=== PATIENT | male | born 1960 | race Caucasian/White ===

== ENCOUNTER 2023-01-03 23:16 | Inpatient (IN) | payer OTHER, SELFPAY ==
[2023-01-03 23:35] VITALS: BP 115/63; PULSE 77; RESP 18; TEMP 36.6; O2SAT 92
[2023-01-04 00:05] VITALS: BMI 33.0
--- NOTE | 2023-01-04 01:39 | PC.ADMIT ---
Pt is a 62yoM admitted on CV from [facility] for Schizophrenia. He has been off medications for an unknown period of time, experiencing AH of god's voice and reportedly chronic delusions of being stalked by the mafia . Pt is focused on finding safe medical care and traveling to his hometown of [place], [place] to check on his childhood home. Pt is malodorous and unkempt, disorganized, guarded, paranoid, but overall pleasant and cooperative. He had been living in a retirement since Jul 2022 but no longer feels safe and does not wish to return there. He has recurrent BLE cellulitis/BLE edema, previously on furosemide but not currently taking. Utox negative, pt denies etoh, nicotine, and illicit substances. He denies current SI/HI/AVH and did not appear to be responding to internal stimuli. He signed a 3-day notice upon arrival to the unit.
--- NOTE | 2023-01-04 07:36 | PHA.MEDREC ---
Pharmacy Consult ? Medication Reconciliation Pharmacy has completed the medication reconciliation. Patient not currently taking home meds.
[2023-01-04 09:30] VITALS: BP 91/55; PULSE 89; TEMP 36.6; O2SAT 97
--- NOTE | 2023-01-04 09:55 | HO.PSYADMNOT ---
HPI Date of Service: 01/04/23 Chief Complaint: Schizophrenia Sources of Information: patient interviewed, chart reviewed and crisis/core team assessment reviewed HPI Subjective Notes: Keen Warning (given and shows understanding), Conditional Voluntary and 3 Day Narrative: Mr. Mohr is a 62 year-old male with hx of schizoprenia who self presented to [facility] reporting that he has been stalked at work and people are trying to poison his medications. He reported that he left long term [facility] because he did not feel safe and was looking to be admitted to [place] in [place]. In the ED utox is negative. Pt also presented with bilateral lower edema and erythema s/s to venous insufficiency. On the unit, pt met with this creative writer and MECCA Peace. Pt presents as cooperative, slightly guarded and asks if his information is confidential. It was explained to pt that as long as information is not suggestive of harm to self or others or sign that he is gravely disable and can't care for himself, it will not be disclosed to other sources (e.i court). Pt's speech is circumstantial, at times difficult to redirect. Pt reports since 1971 his uncle was murdered by the dianboom around [facility] and he recently realized that he inherence millions worth of property. He reports he does not have deems of these properties but working on it. However, because of what ever happened to his uncle, pt believes that people are after him poisoning his food, his medication. He reports there have been multiple attempts to end his life. He reports he suspect not only the [employer] but yarsanism organizations are after him, such as Jehovah witnesses. 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 He seen talking to someone who was not there but denies when asked about hearing voices that others can't hear. He reports he was staying at long term [facility] but does not feel safe there. He also asks if here in the hospital we can give him sealed food as he would feel safety. Pt is non threatening, not agitated. Past Psychiatric History: Inpt: multiple in the past at [facility] OP: none Past med trials: unclear, pt unable to provide this information Medical Evaluation Reviewed: Yes [facility] Medical History (Updated 01/05/23 @ 08:27 by Melanie Mayen) Chronic venous stasis dermatitis Inguinal hernia Schizoaffective disorder Venous insufficiency Ventral hernia Family History: unknown Social History: pt is homeless. completed HS. No further details about family. Substance History: none Trauma History: none Diagnostics Vital Signs (24Hr): Vital Signs - 24 hr 01/03/23 23:35 Temperature 97.9 F Pulse Rate 77 Respiratory Rate 18 Blood Pressure 115/63 Pulse Oximetry 92 Oxygen Delivery Method Room Air BMI result Body Mass Index 33.0 Labs 01/04/23 09:40 Meds/Allergies Meds Home Medications Medication Instructions Recorded Confirmed Type No Known Home Meds 01/04/23 01/04/23 History Allergies Allergies Allergy/AdvReac Type Severity Reaction Status Date / Time No Known Allergies Allergy Verified 01/03/23 23:21 Mental Status Exam Mental Status Exam Narrative: Appearance: MO, wearing hospital gown, in NAD Behavior: calm, guarded in terms of how much information he would give us. Speech: clear, regular rate, hyperverbal at times, spontaneous TP: cirmcustantial TC: persecutory delusions, looking for long term Mood: okay Affect: congruent, mostly constricted Si: none HI: none VH/AH: talking to someone who is not there Delusions: persecutory delusions Insight/judgment: poor x 2. Memory/cog: alert, oriented x3. not situation Assessment & Plan Assessment & Plan (1) Schizophrenia: Status: Acute Code(s): F20.9 - Schizophrenia, unspecified Plan Mr. Mohr is a 62 year-old male with hx of schizophrenia. Pt self presented to [facility] reporting that he is being poisoned and looking for long term. He was looking for admission at [place] as he is originally from [facility]. Pt presents with circumstantial, repetitive and disorganized speech. He asking basically for long term as he does not feel safe back at [facility]. We discussed risks, benefits and alternative treatment options. Pt declines any medications at this time other that lasix but BP is low. Pt does not present in any way as agitated or aggressive. PLAN 1. admit to , CV- he signed a 3 day. 15 minutes checks 2. Aftercare planning. Patient educated on: diagnosis and medication risk/benefits Reason for continued inpatient stay Substantial Risk for: inability to function Statement Statement: I have reviewed the history and physical and performed a pertinent examination on my patient. No changes have occurred unless specified. If the History and Physical was not performed prior to admission, the Hospitalist's service will be consulted for completing the admission physical. Time Spent With Patient Time: Total time managing care of this patient today ____ minutes.
[2023-01-04 09:57] LABS: Estimated Average Glucose 100 mg/dL; Hemoglobin A1c % 5.1 %
[2023-01-04 10:56] LABS: Alanine Aminotransferase 14 U/L (0-40); Albumin Level 3.6 g/dL (3.5-5.0); Alkaline Phosphatase 151 U/L (39-117); Anion Gap 11 (12-20); Aspartate Amino Transferase 16 U/L (5-37); Bilirubin Total 0.9 mg/dL (0.0-1.0); Blood Urea Nitrogen 18 mg/dL (9-16); Carbon Dioxide 31 mmol/L (22-29); Chloride 103 mmol/L (96-108); Cholesterol 146 mg/dL; Creatinine Clr Calc Pharmacy 104.7; Estimated Glomerular Filt Rate > 60; Glucose Fasting 86 mg/dL (60-99); HDL Cholesterol 43 mg/dL; LDL Cholesterol Calculated 91 mg/dl; Sodium 141 mmol/L (135-145); Total Protein 6.5 g/dL (6.5-8.0); Triglycerides 62 mg/dL
[2023-01-04 11:27] LABS: Folate 9.2 ng/mL (> or = 4.0); Thyroid Stimulating Hormone 2.56 uIU/mL (0.32-4.0); Vitamin B12 663 pg/mL (200-900)
--- NOTE | 2023-01-04 17:13 | P.CONHOSP_ITS ---
History of Present Illness Data of Consult Service Date: 01/04/23 Requesting physician: Melanie Mayen Primary Care Provider: Unknown Physician HPI Reason for consult: medical H&P 62-year-old male with history of schizophrenia, bilateral venous stasis dermatitis, venous is insufficiency for which he reports he takes furosemide admitted to Psychiatry with consult placed to hospitalist service for medical H&P. The patient reports he has 2 large hernias that are occasionally bothersome. Denies any changes in bowel habits. No abdominal pain, nausea, vomiting. He denies any alcohol, illicit drug, or cigarette use. He is a former smoker. He has no complaints at this time. Review of Systems Review of Systems: General: No fevers, malaise, unintentional weight loss HEENT: No blurred vision, diplopia. No sore throat, nasal congestion, rhinorrhea, sinus pain, ear pain Cardiovascular: No chest pain, palpitations, or leg edema Respiratory: No shortness of breath, wheezing, cough GI: +hernia. No abdominal pain, nausea, vomiting, diarrhea, constipation, melena, hematochezia : No dysuria, hematuria, increased urinary frequency, decreased urinary output MSK: No myalgia, back pain Neuro: No headaches, weakness, paresthesias Skin: No rashes or lesions [facility] Medical History (Updated 01/04/23 @ 17:28 by MELIDA Franks) Chronic venous stasis dermatitis Inguinal hernia Schizoaffective disorder Venous insufficiency Ventral hernia Social History Household Members: None Housing: Homeless Do you presently have visiting nurse or other home services: No Patient Tobacco Use Status: Former Tobacco user Use of substances other than those prescribed or required for medical reasons: No Currently Displaying Signs/Symptoms of Drug Intoxication Withdrawal: No Have you been hit, kicked, punched, or otherwise hurt by someone within the past year? If so, by whom?: No Do you feel safe in your current relationship?: No Current Relationship Is there a partner from a previous relationship who is making you feel unsafe no w?: No Are you made to feel afraid or neglected: No Advance Directives: No Advance Directives Information Provided: Yes Do you have thoughts of harming others: None Do you have a plan to hurt others: No Plan Recently lost weight without trying: Yes How much weight loss: 2-13 pounds Eating poorly because of decreased appetite: No Nutrition screen score: 3 Nutrition Risks: No Nutritional Risk Poor oral hygiene: Yes service: No Sexual orientation: Don't Know Meds Allergies Allergy/AdvReac Type Severity Reaction Status Date / Time No Known Allergies Allergy Verified 01/03/23 23:21 Active Medications: Current Medications Acetaminophen (Acetaminophen 325 Mg Tablet) 650 mg PO Q6H PRN PRN Reason: Headache/Pain Mild Scale (1-3) Al Hydroxide/Mg Hydroxide (Magnesium Hydrox/Alum Hydrox 30 Ml Oral.Susp) 30 ml PO Q6H PRN PRN Reason: Heartburn/Nausea Hydroxyzine HCl (Hydroxyzine Hcl 25 Mg Tablet) 25 mg PO Q6H PRN PRN Reason: Anxiety Magnesium Hydroxide (Milk Of Magnesia 30 Ml Oral.Susp) 30 ml PO DAILY PRN PRN Reason: Constipation Trazodone HCl (Trazodone Hcl 50 Mg Tablet) 50 mg PO BEDTIME PRN PRN Reason: Insomnia Home Medications Medication Instructions Recorded Confirmed Last Taken Type No Known Home Meds 01/04/23 01/04/23 Unknown History Physical Exam Vital Signs and Narrative: Vital Signs: Last Vital Signs Temp 97.9 F 01/04/23 09:30 Pulse 89 01/04/23 09:30 Resp 18 01/03/23 23:35 BP 91/55 L 01/04/23 09:30 Pulse Ox 97 01/04/23 09:30 O2 Del Method 01/04/23 09:30 BMI result Body Mass Index 33.0 Constitutional - Awake and Alert, No apparent distress Eyes - PERRLA, EOMI Cardiovascular - S1S2, RRR, No edema Respiratory - Normal lung expansion, Normal respiratory effort, No respiratory distress, CTA bilaterally Gastrointestinal - NT / ND; +BS; No rebound or guarding. 4 cm left-sided ventral hernia without overlying erythema or gangrene - large, minimally reducible inguinal hernia descending into the left testicle without ttp. RN Mt surgery pusher operator for the sensory exam Extremities - no calf tenderness bilaterally, no swelling. Chronic venous stasis changes lower extremities bilaterally Musculoskeletal - Normal inspection, normal ROM Skin - Warm/Dry Neurological - Alert & oriented x3, CN II-XII in tact, 5/5 strength BUE and BLE Psychological - Appropriate affect Results Labs 01/04/23 09:40 Labs: Laboratory Results - last 24 hr 01/04/23 01/04/23 09:40 09:40 Anion Gap 11 L Estim Creat Clear Calc 104.7 Estimated GFR > 60 Fasting Glucose 86 Estimat Average Glucose 100 Hemoglobin A1c % 5.1 Calcium 9.0 Total Bilirubin 0.9 AST 16 ALT 14 Alkaline Phosphatase 151 H Total Protein 6.5 Albumin 3.6 Triglycerides 62 Cholesterol 146 LDL Cholesterol, Calc 91 HDL Cholesterol 43 Vitamin B12 663 Folate 9.2 TSH 2.56 Assessment and Plan (1) Routine medical exam: Status: Acute Plan 62-year-old male with history of schizophrenia, bilateral venous stasis dermatitis, venous is insufficiency for which he reports he takes furosemide admitted to Psychiatry with consult placed to hospitalist service for medical H&P. # schizoaffective disorder/mood disorder -plan per Psychiatry # ventral hernia and large inguinal hernia -recommend surgical consult- will likely require continued outpt follow up and possible surgical repair #Bilateral venous stasis dermatitis -Pt reports he takes furosemide at home. BP soft. If BP improves, consider resuming at 20mg -Reviewed renal function and electrolyte levels normal -Elevate legs and compression stockings prn -Monitor BMP in 1 week #Elevated BNP -BNP 380 at [facility]. Baseline unclear. -Lungs clear. Low suspicion for acute CHF exacerbation at this time, pt asymptomatic -Resume lasix once BP allows -Will need outpt follow up with PCP and outpt echo for further investigation Thank you for allowing me to participate in this consult. Signing off at this time. Please do not hesitate to call for further questions. Time Spent With Patient Time: Total time managing care of this patient today ____ minutes.
[2023-01-05 08:00] VITALS: PULSE 78; RESP 18; TEMP 36.6; O2SAT 96
--- NOTE | 2023-01-05 11:44 | P.PNPSI_ITS ---
Subjective Subjective Date of Service: 01/05/23 Reason For Visit: Schizophrenia Subjective Notes: Conditional Voluntary Interim History: Pt continues to report paranoid delusions of mafia trying to kill him. He can't return to [facility] due to his medical needs. Pt reports he has racing thoughts and would like something for anxiety. When asked if hearing voices, I am not supposed to talk about it. He seemed open to trying perphenazine. No SI/HI. No signs of aggression. Review of Systems Review of Systems General: No fevers, malaise, unintentional weight loss HEENT: No blurred vision, diplopia. No sore throat, nasal congestion, rhinorrhea, sinus pain, ear pain Cardiovascular: No chest pain, palpitations, or leg edema Respiratory: No shortness of breath, wheezing, cough GI: +hernia. No abdominal pain, nausea, vomiting, diarrhea, constipation, melena, hematochezia : No dysuria, hematuria, increased urinary frequency, decreased urinary output MSK: No myalgia, back pain Neuro: No headaches, weakness, paresthesias Skin: No rashes or lesions Mental Status Exam Mental Status Exam Narrative: Appearance: MO, wearing hospital gown, in NAD Behavior: calm, guarded in terms of how much information he would give us. Speech: clear, regular rate, hyperverbal at times, spontaneous TP: cirmcustantial TC: persecutory delusions, looking for group home Mood: okay Affect: congruent, mostly constricted Si: none HI: none VH/AH: talking to someone who is not there Delusions: persecutory delusions Insight/judgment: poor x 2. Memory/cog: alert, oriented x3. not situation Diagnostics Vital Signs (24Hr): Vital Signs - 24 hr 01/05/23 20:30 Pulse Rate 89 Respiratory Rate 16 Blood Pressure 104/57 L Pulse Oximetry 94 Oxygen Delivery Method Room Air BMI result Body Mass Index 33.0 Labs 01/04/23 09:40 Labs: Laboratory Results - last 48 hr 01/04/23 01/04/23 09:40 09:40 Sodium 141 Potassium 4.0 Chloride 103 Carbon Dioxide 31 H Anion Gap 11 L BUN 18 H Creatinine 0.81 Estim Creat Clear Calc 104.7 Estimated GFR > 60 Fasting Glucose 86 Estimat Average Glucose 100 Hemoglobin A1c % 5.1 Calcium 9.0 Total Bilirubin 0.9 AST 16 ALT 14 Alkaline Phosphatase 151 H Total Protein 6.5 Albumin 3.6 Triglycerides 62 Cholesterol 146 LDL Cholesterol, Calc 91 HDL Cholesterol 43 Vitamin B12 663 Folate 9.2 TSH 2.56 Medications Medications Current Medications Acetaminophen (Acetaminophen 325 Mg Tablet) 650 mg PO Q6H PRN PRN Reason: Headache/Pain Mild Scale (1-3) Al Hydroxide/Mg Hydroxide (Magnesium Hydrox/Alum Hydrox 30 Ml Oral.Susp) 30 ml PO Q6H PRN PRN Reason: Heartburn/Nausea Hydroxyzine HCl (Hydroxyzine Hcl 25 Mg Tablet) 25 mg PO Q6H PRN PRN Reason: Anxiety Magnesium Hydroxide (Milk Of Magnesia 30 Ml Oral.Susp) 30 ml PO DAILY PRN PRN Reason: Constipation Trazodone HCl (Trazodone Hcl 50 Mg Tablet) 50 mg PO BEDTIME PRN PRN Reason: Insomnia Allergies Allergies Allergy/AdvReac Type Severity Reaction Status Date / Time No Known Allergies Allergy Verified 01/03/23 23:21 Assessment & Plan Assessment & Plan (1) Schizophrenia: Status: Acute Code(s): F20.9 - Schizophrenia, unspecified Plan Mr. Mohr is a 62 year-old male with hx of schizophrenia. Pt self presented to [facility] reporting that he is being poisoned and looking for group home. He was looking for admission at [facility] as he is originally from [facility]. Pt presents with circumstantial, repetitive and disorganized speech. He asking basically for group home as he does not feel safe back at [facility]. We discussed risks, benefits and alternative treatment options. Pt declines any medications at this time other that lasix but BP is low. Pt does not present in any way as agitated or aggressive. PLAN 1. admit to [facility], CV- he signed a 3 day. 15 minutes checks 2. Aftercare planning. 01/05 start perphenazine 2mg po BID. Reason for contiued inpatient stay Substantial Risk for: inability to function Time Spent With Patient Time: Total time managing care of this patient today ____ minutes.
--- NOTE | 2023-01-05 14:13 | MHC.CLN ---
NUTRITION CONSULT FOR UNINTENTIONAL WEIGHT LOSS. UBW ABOUT 240#. CURRENT QEVEPP=026#. VISITED WITH PATIENT. DOES NOT THINK THAT HE HAS LOST 20#. REPORTS THAT EATS OUT AT [facility]. REPORTS THAT CURRENTLY EATING WELL. AWARE THAT HE CAN SELECT OWN MENU ITEMS AND CAN HAVE SNACKS ON UNIT. NO ADDITIONAL NUTRITION INTERVENTIONS AT THIS TIME.
[2023-01-05 20:30] VITALS: BP 104/57; PULSE 89; RESP 16; O2SAT 94
[2023-01-06 07:00] VITALS: BMI 34.0
[2023-01-06] MEDS: Perphenazine 4 MG TABLET PO ×2 (10:41→20:58)
--- NOTE | 2023-01-06 11:32 | P.PNPSI_ITS ---
Subjective Subjective Date of Service: 01/06/23 Reason For Visit: Schizophrenia Subjective Notes: Conditional Voluntary Interim History: Pt reports he slept through the night. He shows appropriate concern about his legs and need for treatment. Pt explained that given that his BP has been low, lasix can't be restarted at this point. Pt denies SI/HI. He reports he is open to trying medication for his mental health referring to racing thoughts, which seem to be more auditory hallucination as pt observed having conversation with someone who is not there. Pt continues to report paranoid delusions of being persecuted by the mafia and people trying to hurt him. Medication Compliance: Yes Side effects from medications: No Review of Systems Review of Systems General: No fevers, malaise, unintentional weight loss HEENT: No blurred vision, diplopia. No sore throat, nasal congestion, rhinorrhea, sinus pain, ear pain Cardiovascular: No chest pain, palpitations, or leg edema Respiratory: No shortness of breath, wheezing, cough GI: +hernia. No abdominal pain, nausea, vomiting, diarrhea, constipation, melena, hematochezia : No dysuria, hematuria, increased urinary frequency, decreased urinary output MSK: No myalgia, back pain Neuro: No headaches, weakness, paresthesias Skin: No rashes or lesions Mental Status Exam Mental Status Exam Narrative: Appearance: MO, wearing hospital gown, in NAD Behavior: calm, guarded in terms of how much information he would give us. Speech: clear, regular rate, hyperverbal at times, spontaneous TP: cirmcustantial TC: persecutory delusions, looking for fpc Mood: okay Affect: congruent, mostly constricted Si: none HI: none VH/AH: talking to someone who is not there Delusions: persecutory delusions Insight/judgment: poor x 2. Memory/cog: alert, oriented x3. not situation Diagnostics Vital Signs (24Hr): Vital Signs - 24 hr 01/06/23 11:52 01/06/23 20:30 Temperature 97.8 F 97.3 F Pulse Rate 86 86 Respiratory Rate 18 16 Blood Pressure 120/60 119/70 Pulse Oximetry 97 96 Oxygen Delivery Method Room Air Room Air BMI result Body Mass Index 34.0 Labs 01/04/23 09:40 Medications Medications Current Medications Acetaminophen (Acetaminophen 325 Mg Tablet) 650 mg PO Q6H PRN PRN Reason: Headache/Pain Mild Scale (1-3) Al Hydroxide/Mg Hydroxide (Magnesium Hydrox/Alum Hydrox 30 Ml Oral.Susp) 30 ml PO Q6H PRN PRN Reason: Heartburn/Nausea Hydroxyzine HCl (Hydroxyzine Hcl 25 Mg Tablet) 25 mg PO Q6H PRN PRN Reason: Anxiety Magnesium Hydroxide (Milk Of Magnesia 30 Ml Oral.Susp) 30 ml PO DAILY PRN PRN Reason: Constipation Perphenazine (Perphenazine 4 Mg Tablet) 4 mg PO BID LISY Last Admin: 01/06/23 20:58 Dose: 4 mg Trazodone HCl (Trazodone Hcl 50 Mg Tablet) 50 mg PO BEDTIME PRN PRN Reason: Insomnia Allergies Allergies Allergy/AdvReac Type Severity Reaction Status Date / Time No Known Allergies Allergy Verified 01/03/23 23:21 Assessment & Plan Assessment & Plan (1) Schizophrenia: Status: Acute Code(s): F20.9 - Schizophrenia, unspecified Plan Mr. Mohr is a 62 year-old male with hx of schizophrenia. Pt self presented to [facility] reporting that he is being poisoned and looking for fpc. He was looking for admission at [place] as he is originally from [facility]. Pt presents with circumstantial, repetitive and disorganized speech. He asking basically for fpc as he does not feel safe back at [facility]. We discussed risks, benefits and alternative treatment options. Pt declines any medications at this time other that lasix but BP is low. Pt does not present in any way as agitated or aggressive. PLAN 1. admit to , - he signed a 3 day. 15 minutes checks 2. Aftercare planning. 01/05 start perphenazine 2mg po BID. 01/06 continue tx. pt asked about need for antibiotic for leg cellulitis- no signs of it per hospitalist. Reason for contiued inpatient stay Substantial Risk for: inability to function Time Spent With Patient Time: Total time managing care of this patient today ____ minutes.
[2023-01-06 11:52] VITALS: BP 120/60; PULSE 86; RESP 18; TEMP 36.6; O2SAT 97
[2023-01-06 20:30] VITALS: BP 119/70; PULSE 86; RESP 16; TEMP 36.3; O2SAT 96
[2023-01-07 09:00] VITALS: BP 108/71; PULSE 89; RESP 18; TEMP 36.2; O2SAT 96
--- NOTE | 2023-01-07 09:57 | PC.NURSE ---
Patient declining medications this morning, stating he feels they are making him constipated. Offered x2, patient declined x2.
--- NOTE | 2023-01-07 12:03 | P.PNPSI_ITS ---
Subjective Subjective Date of Service: 01/07/23 Reason For Visit: Schizophrenia Subjective Notes: Conditional Voluntary Interim History: Pt continues to report paranoia people trying to kill him. Pt quickly becomes paranoid at hospital and states he has been searching for hospital where he can get safe care. He has appropriate concerns about his medical conditions including tx for chronic venous stasis dermatitis, CHF, and COPD. He denies SI/HI. Medication Compliance: Yes Side effects from medications: No Review of Systems Review of Systems General: No fevers, malaise, unintentional weight loss HEENT: No blurred vision, diplopia. No sore throat, nasal congestion, rhinorrhea, sinus pain, ear pain Cardiovascular: No chest pain, palpitations, or leg edema Respiratory: No shortness of breath, wheezing, cough GI: +hernia. No abdominal pain, nausea, vomiting, diarrhea, constipation, melena, hematochezia : No dysuria, hematuria, increased urinary frequency, decreased urinary output MSK: No myalgia, back pain Neuro: No headaches, weakness, paresthesias Skin: No rashes or lesions Mental Status Exam Mental Status Exam Narrative: Appearance: MO, wearing hospital gown, in NAD Behavior: calm, guarded in terms of how much information he would give us. Speech: clear, regular rate, hyperverbal at times, spontaneous TP: cirmcustantial TC: persecutory delusions, looking for fpc Mood: okay Affect: congruent, mostly constricted Si: none HI: none VH/AH: talking to someone who is not there Delusions: persecutory delusions Insight/judgment: poor x 2. Memory/cog: alert, oriented x3. not situation Diagnostics Vital Signs (24Hr): Vital Signs - 24 hr 01/06/23 20:30 01/07/23 09:00 01/07/23 15:34 Temperature 97.3 F 97.2 F 97.3 F Pulse Rate 86 89 88 Respiratory Rate 16 18 22 H Blood Pressure 119/70 108/71 137/63 Pulse Oximetry 96 96 97 Oxygen Delivery Method Room Air Room Air Room Air BMI result Body Mass Index 34.0 Labs 01/04/23 09:40 Medications Medications Current Medications Acetaminophen (Acetaminophen 325 Mg Tablet) 650 mg PO Q6H PRN PRN Reason: Headache/Pain Mild Scale (1-3) Al Hydroxide/Mg Hydroxide (Magnesium Hydrox/Alum Hydrox 30 Ml Oral.Susp) 30 ml PO Q6H PRN PRN Reason: Heartburn/Nausea Hydroxyzine HCl (Hydroxyzine Hcl 25 Mg Tablet) 25 mg PO Q6H PRN PRN Reason: Anxiety Magnesium Hydroxide (Milk Of Magnesia 30 Ml Oral.Susp) 30 ml PO DAILY PRN PRN Reason: Constipation Multi-Ingred Cream/Lotion/Oil/Oint (Mineral Oil/Petrolatum,White 106 Gm Tube) 1 appl TOPICAL TID [facility]; Protocol Last Admin: 01/07/23 15:30 Dose: 1 appl Perphenazine (Perphenazine 4 Mg Tablet) 4 mg PO BID [facility] Last Admin: 01/07/23 11:25 Dose: Not Given Trazodone HCl (Trazodone Hcl 50 Mg Tablet) 50 mg PO BEDTIME PRN PRN Reason: Insomnia Allergies Allergies Allergy/AdvReac Type Severity Reaction Status Date / Time No Known Allergies Allergy Verified 01/03/23 23:21 Assessment & Plan Assessment & Plan (1) Schizophrenia: Status: Acute Code(s): F20.9 - Schizophrenia, unspecified Plan Mr. Mohr is a 62 year-old male with hx of schizophrenia. Pt self presented to [facility] reporting that he is being poisoned and looking for fpc. He was looking for admission at [place] as he is originally from [facility]. Pt presents with circumstantial, repetitive and disorganized speech. He asking basically for fpc as he does not feel safe back at [facility]. We discussed risks, benefits and alternative treatment options. Pt declines any medications at this time other that lasix but BP is low. Pt does not present in any way as agitated or aggressive. PLAN 1. admit to M3, CV- he signed a 3 day. 15 minutes checks 2. Aftercare planning. 01/05 start perphenazine 2mg po BID. 01/06 continue tx. pt asked about need for antibiotic for leg cellulitis- no signs of it per hospitalist. 01/07 wants perphenazine at bedtime. BP better, may tolerate restarting lasix 20mg po daily at this time. monitor fluid retention, CHF s/s, repeat BNP. Reason for contiued inpatient stay Substantial Risk for: inability to function Time Spent With Patient Time: Total time managing care of this patient today ____ minutes.
[2023-01-07] MEDS: Mineral Oil/Petrolatum,White 106 GM Tube 1 APPL TOPICAL ×3 (12:09→20:21)
[2023-01-07 15:34] VITALS: BP 137/63; PULSE 88; RESP 22; TEMP 36.3; O2SAT 97
--- NOTE | 2023-01-07 15:35 | PC.NURSE ---
Patient w/ episode of coughing while with provider; vitals obtained at provider's request, coughing subsided, no longer coughing, denies SOB.
--- NOTE | 2023-01-07 18:43 | PC.NURSE ---
Late entry: [employer] texted re: obtaining compression stockings.
[2023-01-07] MEDS: Furosemide 20 MG TABLET PO (20:20)
[2023-01-07 20:26] VITALS: BP 157/60; PULSE 79; TEMP 36.7; O2SAT 93
[2023-01-08 06:00] VITALS: BP 116/68; PULSE 80; RESP 18; TEMP 36.8; O2SAT 95
[2023-01-08 08:24] LABS: Alanine Aminotransferase 15 U/L (0-40); Albumin Level 3.3 g/dL (3.5-5.0); Alkaline Phosphatase 167 U/L (39-117); Anion Gap 11 (12-20); Aspartate Amino Transferase 15 U/L (5-37); Bilirubin Total 0.5 mg/dL (0.0-1.0); Blood Urea Nitrogen 23 mg/dL (9-16); Calcium 8.7 mg/dL (8.4-10.2); Carbon Dioxide 30 mmol/L (22-29); Chloride 105 mmol/L (96-108); Creatinine Clr Calc Pharmacy 116.5; Estimated Glomerular Filt Rate > 60; Glucose Fasting 96 mg/dL (60-99); Potassium 4.6 mmol/L (3.3-5.1); Sodium 141 mmol/L (135-145); Total Protein 5.9 g/dL (6.5-8.0)
[2023-01-08] MEDS: Furosemide 20 MG TABLET PO (09:50)
[2023-01-08 11:15] LABS: B Type Natriuretic Peptide 39 pg/mL (<100)
--- NOTE | 2023-01-08 20:17 | P.PNPSI_ITS ---
Subjective Subjective Date of Service: 01/08/23 Reason For Visit: Schizophrenia Interim History: pt sleepimng in bed after lunch. rousanaren, declines interview. no questions, complaints, or requests. per staff, isolative, withdrawn, paranoid that tuyet are following him, that someone has taken all his property. refusing some meds, including trilafon. Mental Status Exam Mental Status Exam Narrative: Appearance: MO, wearing hospital gown, in NAD Behavior: calm, guarded in terms of how much information he would give us. Speech: clear, regular rate, hyperverbal at times, spontaneous TP: cirmcustantial TC: persecutory delusions, looking for care home Mood: okay Affect: congruent, mostly constricted Si: none HI: none VH/AH: talking to someone who is not there Delusions: persecutory delusions Insight/judgment: poor x 2. Memory/cog: alert, oriented x3. not situation Diagnostics Vital Signs (24Hr): Vital Signs - 24 hr 01/07/23 20:26 01/08/23 06:00 Temperature 98.0 F 98.2 F Pulse Rate 79 80 Respiratory Rate 18 Blood Pressure 157/60 H 116/68 Pulse Oximetry 93 95 Oxygen Delivery Method Room Air Room Air BMI result Body Mass Index 34.0 Labs 01/08/23 07:25 Labs: Laboratory Results - last 48 hr 01/08/23 01/08/23 07:25 07:25 Sodium 141 Potassium 4.6 Chloride 105 Carbon Dioxide 30 H Anion Gap 11 L BUN 23 H Creatinine 0.74 Estim Creat Clear Calc 116.5 Estimated GFR > 60 Fasting Glucose 96 Calcium 8.7 Total Bilirubin 0.5 AST 15 ALT 15 Alkaline Phosphatase 167 H B-Natriuretic Peptide 39 Total Protein 5.9 L Albumin 3.3 L Medications Medications Current Medications Acetaminophen (Acetaminophen 325 Mg Tablet) 650 mg PO Q6H PRN PRN Reason: Headache/Pain Mild Scale (1-3) Al Hydroxide/Mg Hydroxide (Magnesium Hydrox/Alum Hydrox 30 Ml Oral.Susp) 30 ml PO Q6H PRN PRN Reason: Heartburn/Nausea Furosemide (Furosemide 20 Mg Tablet) 20 mg PO DAILY [facility]; Protocol Last Admin: 01/08/23 09:50 Dose: 20 mg Hydroxyzine HCl (Hydroxyzine Hcl 25 Mg Tablet) 25 mg PO Q6H PRN PRN Reason: Anxiety Magnesium Hydroxide (Milk Of Magnesia 30 Ml Oral.Susp) 30 ml PO DAILY PRN PRN Reason: Constipation Multi-Ingred Cream/Lotion/Oil/Oint (Mineral Oil/Petrolatum,White 106 Gm Tube) 1 appl TOPICAL TID LISY; Protocol Last Admin: 01/08/23 16:22 Dose: Not Given Perphenazine (Perphenazine 4 Mg Tablet) 4 mg PO BID [facility]IS[facility] Last Admin: 01/08/23 09:50 Dose: Not Given Trazodone HCl (Trazodone Hcl 50 Mg Tablet) 50 mg PO BEDTIME PRN PRN Reason: Insomnia Allergies Allergies Allergy/AdvReac Type Severity Reaction Status Date / Time No Known Allergies Allergy Verified 01/03/23 23:21 Assessment & Plan Assessment & Plan (1) Schizophrenia: Status: Acute Code(s): F20.9 - Schizophrenia, unspecified Plan Mr. Mohr is a 62 year-old male with hx of schizophrenia. Pt self presented to [facility] reporting that he is being poisoned and looking for care home. He was looking for admission at [place] as he is originally from [facility]. Pt presents with circumstantial, repetitive and disorganized speech. He asking basically for care home as he does not feel safe back at [facility]. We discussed risks, benefits and alternative treatment options. Pt declines any medications at this time other that lasix but BP is low. Pt does not present in any way as agitated or aggressive. PLAN 1. admit to , CV- he signed a 3 day. 15 minutes checks 2. Aftercare planning. 01/05 start perphenazine 2mg po BID. 01/06 continue tx. pt asked about need for antibiotic for leg cellulitis- no signs of it per hospitalist. 01/07 wants perphenazine at bedtime. BP better, may tolerate restarting lasix 20mg po daily at this time. monitor fluid retention, CHF s/s, repeat BNP. 01/08: renal function appears worse than prior, will hold lasix for now. T/C QOD dosing. appears stably psychotic and not entirely compliant with antipsychotic medication. Reason for contiued inpatient stay Substantial Risk for: inability to function and rapid decompensation Time Spent With Patient Time: Total time managing care of this patient today _15___ minutes.
[2023-01-08] MEDS: Mineral Oil/Petrolatum,White 106 GM Tube 1 APPL TOPICAL (21:00)
[2023-01-08 21:19] VITALS: PULSE 86; TEMP 36.3; O2SAT 93
[2023-01-09 06:00] VITALS: BP 126/64; PULSE 80; RESP 18; TEMP 36.6; O2SAT 95
[2023-01-09] MEDS: Mineral Oil/Petrolatum,White 106 GM Tube 1 APPL TOPICAL (11:12)
--- NOTE | 2023-01-09 16:26 | P.PNPSI_ITS ---
Subjective Subjective Date of Service: 01/09/23 Reason For Visit: Schizophrenia Interim History: calm, cooperative. tangential, hyperverbal. MD encouraged pt to take antipsychotic. per staff, declining meds. accepting foot cream from female staff. self-dialoguing. bizarre statements. Mental Status Exam Mental Status Exam Narrative: Appearance: MO, wearing street clothes, in NAD Behavior: calm, guarded in terms of how much information he would give us. Speech: clear, regular rate, hyperverbal at times, spontaneous TP: tangential TC: persecutory delusions, looking for assisted Mood: okay Affect: congruent, mostly constricted Si: none HI: none VH/AH: talking to someone who is not there Delusions: persecutory delusions Insight/judgment: poor x 2. Memory/cog: alert, oriented x3. not situation Diagnostics Vital Signs (24Hr): Vital Signs - 24 hr 01/08/23 21:19 01/09/23 06:00 Temperature 97.3 F 97.8 F Pulse Rate 86 80 Respiratory Rate 18 Blood Pressure 126/64 Pulse Oximetry 93 95 Oxygen Delivery Method Room Air Room Air BMI result Body Mass Index 34.0 Labs 01/08/23 07:25 Labs: Laboratory Results - last 48 hr 01/08/23 01/08/23 07:25 07:25 Sodium 141 Potassium 4.6 Chloride 105 Carbon Dioxide 30 H Anion Gap 11 L BUN 23 H Creatinine 0.74 Estim Creat Clear Calc 116.5 Estimated GFR > 60 Fasting Glucose 96 Calcium 8.7 Total Bilirubin 0.5 AST 15 ALT 15 Alkaline Phosphatase 167 H B-Natriuretic Peptide 39 Total Protein 5.9 L Albumin 3.3 L Medications Medications Current Medications Acetaminophen (Acetaminophen 325 Mg Tablet) 650 mg PO Q6H PRN PRN Reason: Headache/Pain Mild Scale (1-3) Al Hydroxide/Mg Hydroxide (Magnesium Hydrox/Alum Hydrox 30 Ml Oral.Susp) 30 ml PO Q6H PRN PRN Reason: Heartburn/Nausea Furosemide (Furosemide 20 Mg Tablet) 20 mg PO DAILY [facility]; Protocol Last Admin: 01/08/23 09:50 Dose: 20 mg Hydroxyzine HCl (Hydroxyzine Hcl 25 Mg Tablet) 25 mg PO Q6H PRN PRN Reason: Anxiety Magnesium Hydroxide (Milk Of Magnesia 30 Ml Oral.Susp) 30 ml PO DAILY PRN PRN Reason: Constipation Multi-Ingred Cream/Lotion/Oil/Oint (Mineral Oil/Petrolatum,White 106 Gm Tube) 1 appl TOPICAL TID LISY; Protocol Last Admin: 01/09/23 16:22 Dose: Not Given Perphenazine (Perphenazine 4 Mg Tablet) 4 mg PO BID [facility] Last Admin: 01/09/23 12:15 Dose: Not Given Trazodone HCl (Trazodone Hcl 50 Mg Tablet) 50 mg PO BEDTIME PRN PRN Reason: Insomnia Allergies Allergies Allergy/AdvReac Type Severity Reaction Status Date / Time No Known Allergies Allergy Verified 01/03/23 23:21 Assessment & Plan Assessment & Plan (1) Schizophrenia: Status: Acute Code(s): F20.9 - Schizophrenia, unspecified Plan Mr. Mohr is a 62 year-old male with hx of schizophrenia. Pt self presented to [facility] reporting that he is being poisoned and looking for assisted. He was looking for admission at [place] as he is originally from [facility]. Pt presents with circumstantial, repetitive and disorganized speech. He asking basically for assisted as he does not feel safe back at [facility]. We discussed risks, benefits and alternative treatment options. Pt declines any medications at this time other that lasix but BP is low. Pt does not present in any way as agitated or aggressive. PLAN 1. admit to , CV- he signed a 3 day. 15 minutes checks 2. Aftercare planning. 01/05 start perphenazine 2mg po BID. 01/06 continue tx. pt asked about need for antibiotic for leg cellulitis- no signs of it per hospitalist. 01/07 wants perphenazine at bedtime. BP better, may tolerate restarting lasix 20mg po daily at this time. monitor fluid retention, CHF s/s, repeat BNP. 01/08: renal function appears worse than prior, will hold lasix for now. T/C QOD dosing. appears stably psychotic and not entirely compliant with antipsychotic medication. 01/09: give dose of lasix tomorrow morning. check labs tuesday. refusing adequate meds. stably psychotic. Reason for contiued inpatient stay Substantial Risk for: inability to function and rapid decompensation Time Spent With Patient Time: Total time managing care of this patient today ____ minutes.
--- NOTE | 2023-01-10 09:36 | PC.NURSE ---
Provider contacted via [employer] Text re: clarification of order for furosemide.
[2023-01-10 09:45] VITALS: BP 128/62; PULSE 78; RESP 18; TEMP 36.3; O2SAT 95
[2023-01-10] MEDS: Furosemide 20 MG TABLET PO (10:03)
[2023-01-10] MEDS: Mineral Oil/Petrolatum,White 106 GM Tube 1 APPL TOPICAL ×2 (11:09→16:23)
--- NOTE | 2023-01-10 14:35 | P.PNPSI_ITS ---
Subjective Subjective Date of Service: 01/10/23 Reason For Visit: Schizophrenia Interim History: calm, cooperative. tangential, non-stop talking. per staff, declining meds and self-dialoguing. Mental Status Exam Mental Status Exam Narrative: Appearance: MO, wearing street clothes, in NAD Behavior: calm Speech: clear, regular rate, hyperverbal, spontaneous TP: tangential Mood: not assessed Affect: congruent, mostly constricted Si: none expressed HI: none expressed VH/AH: none expressed Delusions: persecutory delusions Insight/judgment: poor x 2. Memory/cog: alert, oriented x3. not situation Diagnostics Vital Signs (24Hr): Vital Signs - 24 hr 01/10/23 09:45 Temperature 97.4 F Pulse Rate 78 Respiratory Rate 18 Blood Pressure 128/62 Pulse Oximetry 95 Oxygen Delivery Method Room Air BMI result Body Mass Index 34.0 Labs 01/08/23 07:25 Medications Medications Current Medications Acetaminophen (Acetaminophen 325 Mg Tablet) 650 mg PO Q6H PRN PRN Reason: Headache/Pain Mild Scale (1-3) Al Hydroxide/Mg Hydroxide (Magnesium Hydrox/Alum Hydrox 30 Ml Oral.Susp) 30 ml PO Q6H PRN PRN Reason: Heartburn/Nausea Furosemide (Furosemide 20 Mg Tablet) 20 mg PO DAILY [facility]; Protocol Last Admin: 01/08/23 09:50 Dose: 20 mg Hydroxyzine HCl (Hydroxyzine Hcl 25 Mg Tablet) 25 mg PO Q6H PRN PRN Reason: Anxiety Magnesium Hydroxide (Milk Of Magnesia 30 Ml Oral.Susp) 30 ml PO DAILY PRN PRN Reason: Constipation Multi-Ingred Cream/Lotion/Oil/Oint (Mineral Oil/Petrolatum,White 106 Gm Tube) 1 appl TOPICAL TID [facility]Y; Protocol Last Admin: 01/10/23 11:09 Dose: 1 appl Perphenazine (Perphenazine 4 Mg Tablet) 4 mg PO BID [facility] Last Admin: 01/10/23 09:38 Dose: Not Given Trazodone HCl (Trazodone Hcl 50 Mg Tablet) 50 mg PO BEDTIME PRN PRN Reason: Insomnia Allergies Allergies Allergy/AdvReac Type Severity Reaction Status Date / Time No Known Allergies Allergy Verified 01/03/23 23:21 Assessment & Plan Assessment & Plan (1) Schizophrenia: Status: Acute Code(s): F20.9 - Schizophrenia, unspecified Plan Mr. Mohr is a 62 year-old male with hx of schizophrenia. Pt self presented to [facility] reporting that he is being poisoned and looking for longterm. He was looking for admission at [place] as he is originally from [facility]. Pt presents with circumstantial, repetitive and disorganized speech. He asking basically for longterm as he does not feel safe back at [facility]. We discussed risks, benefits and alternative treatment options. Pt declines any medications at this time other that lasix but BP is low. Pt does not present in any way as agitated or aggressive. PLAN 1. admit to M3, CV- he signed a 3 day. 15 minutes checks 2. Aftercare planning. 01/05 start perphenazine 2mg po BID. 01/06 continue tx. pt asked about need for antibiotic for leg cellulitis- no signs of it per hospitalist. 01/07 wants perphenazine at bedtime. BP better, may tolerate restarting lasix 20mg po daily at this time. monitor fluid retention, CHF s/s, repeat BNP. 01/08: renal function appears worse than prior, will hold lasix for now. T/C QOD dosing. appears stably psychotic and not entirely compliant with antipsychotic medication. 01/09: give dose of lasix tomorrow morning. check labs tuesday. refusing adequate meds. stably psychotic. 01/10: lasix today, check labs tomorrow. refusing psych meds. Reason for contiued inpatient stay Substantial Risk for: inability to function and rapid decompensation Time Spent With Patient Time: Total time managing care of this patient today ____ minutes.
--- NOTE | 2023-01-10 17:12 | PC.NURSE ---
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
[2023-01-10 18:00] VITALS: BP 112/60; PULSE 81; RESP 18; TEMP 36.6; O2SAT 97
[2023-01-11 08:39] VITALS: BP 105/68; PULSE 74; RESP 18; TEMP 36.7; O2SAT 95
[2023-01-11 10:05] LABS: Anion Gap 12 (12-20); Blood Urea Nitrogen 22 mg/dL (9-16); Calcium 9.1 mg/dL (8.4-10.2); Carbon Dioxide 32 mmol/L (22-29); Chloride 101 mmol/L (96-108); Creatinine Clr Calc Pharmacy 106.4; Estimated Glomerular Filt Rate > 60; Glucose Random 119 mg/dL (60-115); Potassium 4.6 mmol/L (3.3-5.1); Sodium 140 mmol/L (135-145)
[2023-01-11] MEDS: Mineral Oil/Petrolatum,White 106 GM Tube 1 APPL TOPICAL (10:37)
--- NOTE | 2023-01-11 10:48 | PC.NURSE ---
Pt declined compression stockings, requesting more time to consider them.
--- NOTE | 2023-01-11 13:33 | HO.PSYCHPN ---
Subjective Subjective Date of Service: 01/11/23 Reason For Visit: Schizophrenia Subjective Notes: Conditional Voluntary Interim History: Pt reports he has been calling shelters. He declines medications as he does not feel they are safe nor that he needs them. He denies SI/HI. No signs of aggression towards self or others. Chronic persecutory paranoia. No behavioral concerns. Medication Compliance: Yes Review of Systems Review of Systems General: No fevers, malaise, unintentional weight loss HEENT: No blurred vision, diplopia. No sore throat, nasal congestion, rhinorrhea, sinus pain, ear pain Cardiovascular: No chest pain, palpitations, or leg edema Respiratory: No shortness of breath, wheezing, cough GI: +hernia. No abdominal pain, nausea, vomiting, diarrhea, constipation, melena, hematochezia : No dysuria, hematuria, increased urinary frequency, decreased urinary output MSK: No myalgia, back pain Neuro: No headaches, weakness, paresthesias Skin: No rashes or lesions Mental Status Exam Mental Status Exam Narrative: Appearance: MO, wearing street clothes, in NAD Behavior: calm Speech: clear, regular rate, hyperverbal, spontaneous TP: tangential Mood: not assessed Affect: congruent, mostly constricted Si: none expressed HI: none expressed VH/AH: none expressed Delusions: persecutory delusions Insight/judgment: poor x 2. Memory/cog: alert, oriented x3. not situation Diagnostics Vital Signs (24Hr): Vital Signs - 24 hr 01/10/23 18:00 01/11/23 08:39 Temperature 97.9 F 98.1 F Pulse Rate 81 74 Respiratory Rate 18 18 Blood Pressure 112/60 105/68 Pulse Oximetry 97 95 Oxygen Delivery Method Room Air Room Air BMI result Body Mass Index 34.0 Labs 01/11/23 09:46 Labs: Laboratory Results - last 48 hr 01/11/23 09:46 Sodium 140 Potassium 4.6 Chloride 101 Carbon Dioxide 32 H Anion Gap 12 BUN 22 H Creatinine 0.81 Estim Creat Clear Calc 106.4 Estimated GFR > 60 Random Glucose 119 H Calcium 9.1 Medications Medications Current Medications Acetaminophen (Acetaminophen 325 Mg Tablet) 650 mg PO Q6H PRN PRN Reason: Headache/Pain Mild Scale (1-3) Al Hydroxide/Mg Hydroxide (Magnesium Hydrox/Alum Hydrox 30 Ml Oral.Susp) 30 ml PO Q6H PRN PRN Reason: Heartburn/Nausea Furosemide (Furosemide 20 Mg Tablet) 20 mg PO DAILY [facility]; Protocol Last Admin: 01/08/23 09:50 Dose: 20 mg Hydroxyzine HCl (Hydroxyzine Hcl 25 Mg Tablet) 25 mg PO Q6H PRN PRN Reason: Anxiety Magnesium Hydroxide (Milk Of Magnesia 30 Ml Oral.Susp) 30 ml PO DAILY PRN PRN Reason: Constipation Multi-Ingred Cream/Lotion/Oil/Oint (Mineral Oil/Petrolatum,White 106 Gm Tube) 1 appl TOPICAL TID [facility]; Protocol Last Admin: 01/11/23 10:37 Dose: 1 appl Perphenazine (Perphenazine 4 Mg Tablet) 4 mg PO BID [facility] Last Admin: 01/11/23 08:38 Dose: Not Given Trazodone HCl (Trazodone Hcl 50 Mg Tablet) 50 mg PO BEDTIME PRN PRN Reason: Insomnia Allergies Allergies Allergy/AdvReac Type Severity Reaction Status Date / Time No Known Allergies Allergy Verified 01/03/23 23:21 Assessment & Plan Assessment & Plan (1) Schizophrenia: Status: Acute Code(s): F20.9 - Schizophrenia, unspecified Plan Mr. Mohr is a 62 year-old male with hx of schizophrenia. Pt self presented to [facility] reporting that he is being poisoned and looking for intermediate. He was looking for admission at [place] as he is originally from [facility]. Pt presents with circumstantial, repetitive and disorganized speech. He asking basically for intermediate as he does not feel safe back at [facility]. We discussed risks, benefits and alternative treatment options. Pt declines any medications at this time other that lasix but BP is low. Pt does not present in any way as agitated or aggressive. PLAN 1. admit to M3, CV- he signed a 3 day. 15 minutes checks 2. Aftercare planning. 01/05 start perphenazine 2mg po BID. 01/06 continue tx. pt asked about need for antibiotic for leg cellulitis- no signs of it per hospitalist. 01/07 wants perphenazine at bedtime. BP better, may tolerate restarting lasix 20mg po daily at this time. monitor fluid retention, CHF s/s, repeat BNP. 01/08: renal function appears worse than prior, will hold lasix for now. T/C QOD dosing. appears stably psychotic and not entirely compliant with antipsychotic medication. 01/09: give dose of lasix tomorrow morning. check labs tuesday. refusing adequate meds. stably psychotic. 01/10: lasix today, check labs tomorrow. refusing psych meds. 01/11 continue tx. Reason for contiued inpatient stay Substantial Risk for: stable for discharge Time Spent With Patient Time: Total time managing care of this patient today ____ minutes.
[2023-01-11 20:45] VITALS: BP 105/63; PULSE 78; RESP 16; TEMP 36.7; O2SAT 94
[2023-01-12 08:24] VITALS: BP 108/70; PULSE 80; RESP 16; TEMP 36.4; O2SAT 97
--- NOTE | 2023-01-12 11:56 | PM.PSYDC ---
DS: Providers Provider Date of Service: 01/12/23 Date of admission: 01/03/23 23:16 Primary care physician: Unknown Physician Consults: 01/03/23 23:21 Consult to Hospitalist Routine Consulting Provider: Hospitalist Reason For Exam: medical h&p DS: Diagnosis Discharge Diagnosis (1) Schizophrenia: Status: Acute DS: Medications Discharge Medications Home Medications: Previous Rx's Medication Instructions Recorded perphenazine 4 mg tablet 4 mg PO BID #60 tabs 01/12/23 Mental Status Exam Mental Status Exam Narrative: Appearance: MO, wearing street clothes, in NAD Behavior: calm Speech: clear, regular rate, hyperverbal, spontaneous TP: tangential Mood: not assessed Affect: congruent, mostly constricted Si: none expressed HI: none expressed VH/AH: none expressed Delusions: persecutory delusions Insight/judgment: poor x 2. Memory/cog: alert, oriented x3. not situation Data Data Completed and Pending Completed studies during hospitalization [Text1]: 01/08/23 01/08/23 01/11/23 07:25 07:25 09:46 Sodium 141 140 Potassium 4.6 4.6 Chloride 105 101 Carbon Dioxide 30 H 32 H Anion Gap 11 L 12 BUN 23 H 22 H Creatinine 0.74 0.81 Estim Creat Clear Calc 116.5 106.4 Estimated GFR > 60 > 60 Random Glucose 119 H Fasting Glucose 96 Calcium 8.7 9.1 Total Bilirubin 0.5 AST 15 ALT 15 Alkaline Phosphatase 167 H B-Natriuretic Peptide 39 Total Protein 5.9 L Albumin 3.3 L DS: Summary Hospital Course Hospital Course: Subjective Notes: Keen Warning (given and shows understanding), Conditional Voluntary and 3 Day Narrative: Mr. Mohr is a 62 year-old male with hx of schizoprenia who self presented to [facility] reporting that he has been stalked at work and people are trying to poison his medications. He reported that he left [facility] because he did not feel safe and was looking to be admitted to [facility] in [place]. In the ED utox is negative. Pt also presented with bilateral lower edema and erythema s/s to venous insufficiency. On the unit, pt met with this data analyst report writer and MECCA Peace. Pt presents as cooperative, slightly guarded and asks if his information is confidential. It was explained to pt that as long as information is not suggestive of harm to self or? others or sign that he is gravely disable and can't care for himself, it will not be disclosed to other sources (e.i court). Pt's speech is circumstantial, at times difficult to redirect. Pt reports since 1971 his uncle was murdered by the [employer] around [facility] and he recently realized that he inherence millions worth of property. He reports he does not have deems of these properties but working on it. However, because of what ever happened to his uncle, pt believes that people are after him poisoning his food, his medication. He reports there have been multiple attempts to end his life. He reports he suspect not only the shirleyia but advent organizations are after him, such as Jehovah witnesses. 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 He seen talking to someone who was not there but denies when asked about hearing voices that others can't hear. He reports he was staying at [facility] but does not feel safe there. He also asks if here in the hospital we can give him sealed food as he would feel safety. Pt is non threatening, not agitated. Past Psychiatric History: Inpt: multiple in the past at [facility] OP: none Past med trials: unclear, pt unable to provide this information Medical Evaluation Reviewed: Yes HOSPITAL COURSE On the unit, pt presented as pleasant, somewhat guarded but cooperative. He signed a CV and was placed on 15 minutes checks for safety. Pt presented with paranoid delusions of mafia following him. He denied suicidal or homicidal ideation. It appears this has been chronic, largely untreated. After discussing risks, benefits and alternative treatment options, he agreed to tried perphenazine. [facility] was [facility] to a [facility]. Collateral information gathered from staff at [facility], denied any hx of violence or aggression but chronic paranoid delusions. Pt was seen bby hospitalist due to hx of CHF, HTN. He was mostly hypotensive and lasix was held. There were no incidences of disruptive behaviors nor need for restraints. Status at Discharge Cognitive/behavioral status at discharge: Pt with mostly constricted, brightens at times. NO SI/HI. continue to have paranoid delusions. Pt sleeping and eating well. No aggression towards self or others. Pt seen self dialoguing, which he reported it was God Functional status at discharge: independent ambulation Overall status at discharge: patient is progressing back to baseline Time Spent with Patient Time attestation: Total time managing care of this patient today ___30_ minutes. Time spent: Greater than 30 minutes Discharge Plan Discharge Anticipated Discharge Date/Time: 01/12/23 11:50 Patient Disposition: Home, Self-Care Discharge Diagnosis: schizophrenia Referrals: Therapy & Psychiatry [Other] - 1 Week (Please follow up with He Blackmon at the phone number listed above if you change your mind about participating in outpatient therapy or medication management) [facility] [Physician] - 1 Week (Make appt within one week of discharge. May use walk in clinic if in need of immediate attention. ) Discharge Medications: New perphenazine 4 mg Tablet 4 mg PO BID Qty: 60 0RF Discharge Orders: Discharge Order (Routine); Ordered 01/12/23 Ordered By: Melanie Mayen Diet: Regular diet Activity on Discharge: As tolerated Stand Alone Forms: Patient Portal Discharge page, Community Support Care Plan Goals: 1. Maintain mood 2. No SI/HI 3. no aggression towards self or others Health Concerns: Follow up with PCP Plan of Treatment: 1. take medications as prescribed 2. call 911 in event of emergency Assessment: Pt with bright affect. No SI/HI. paranoid delusions continued but no signs of aggression towards self or others. AH of God and talking to someone who is not there. Discharge Date/Time: 01/12/23 13:15
--- NOTE | 2023-01-12 13:39 | PC.NURSE ---
Patient engages in discharge discussion. Patient aware of discharge. Spoke of going to [facility] for inquiry regarding furosemide and bacterial medication. [facility] is near where he grew up. Upon discharge, reports he is going to [facility]. Patient appears anxious, no reported SI/HI at this time. Patient denies AH/VH, however observed responding to internal stimuli. Discharge paperwork reviewed, patient asked appropriate questions. Reports understanding. Medications reviewed. All belongings taken with the patient. Crisis numbers provided.
== END 2023-01-12 13:15 | disposition home or self-care (01) | DRG 885 ==
PROVIDERS: Admitting Provider Psychiatry & Neurology Psychiatry; Visit Provider Social Worker
DX: F20.9 Schizophrenia, unspecified (principal); I87.2 Venous insufficiency (chronic) (peripheral); Z59.02 Unsheltered homelessness; Z87.891 Personal history of nicotine dependence; Z79.899 Other long term (current) drug therapy
CPT/HCPCS: 36415; 80048; 80053; 80061; 82607; 82746; 83036; 83880; 84443

== ENCOUNTER 2023-11-01 18:18 | Emergency (ER) | payer OTHER, SELFPAY ==
--- NOTE | ~2023-11-01 | XR_ITS ---
EXAMINATION: XR CHEST 2 VIEW CLINICAL INFORMATION: Chest pain COMPARISON: None TECHNIQUE: PA and lateral views of the chest obtained. FINDINGS: The lungs are clear. There are no pleural effusions. The cardiomediastinal silhouette is normal. XR/XR chest 2V IMPRESSION: No acute cardiopulmonary disease.
[2023-11-01 18:39] VITALS: BP 126/78; PULSE 72; RESP 20; TEMP 36.7; O2SAT 96; BMI 36.8
--- NOTE | 2023-11-01 18:39 | ED.GENADULT ---
HPI - General Adult General Chief complaint: General Medical Stated complaint: water retention Time Seen by Provider: 11/02/23 01:34 Source: patient Mode of arrival: ambulatory Limitations: no limitations History of Present Illness HPI narrative: 62 yo male with schizophrenia, homelessness, chronic leg swelling and edema here with c/o leg edema for 2 years and today wants to get it checked out. There is no change in his swelling. He has not been on lasix before. MD complaint: leg swelling Onset (ago): year(s) (2) Location: left, right and lower extremity Radiation: non-radiation Severity: moderate Relieving factors: none Exacerbating factors: none Associated symptoms: denies other symptoms Treatments prior to arrival: none Related Data Previous Rx's Medication Instructions Recorded perphenazine 4 mg tablet 4 mg PO BID #60 tabs 01/12/23 compr.stocking,knee,long,x-lrg #12 ea 11/02/23 furosemide 20 mg tablet (Lasix) 20 mg PO DAILY #7 tabs 11/02/23 Allergies Allergy/AdvReac Type Severity Reaction Status Date / Time No Known Allergies Allergy Verified 01/03/23 23:21 Review of Systems Review of Systems: Constitutional : No Fever, No Chills Cardiovascular : No Chest Pain, No SOB Respiratory : No Cough, No Dyspnea, pos leg edema Gastrointestinal : No Nausea, No Vomiting, No Diarrhea, No abdominal Pain Genitourinary : No Dysuria, No Hematuria Musculoskeletal : no joint pain, No Myalgias, No Joint Swelling Skin : No Skin lacerations, No rash Neuro : No Weakness, No Numbness, No Loss of Consciousness, No Dizziness, No Headache Psych : No Anxiety/Panic, No Depression All other systems reviewed and are negative [facility] Past Medical History Attestation statement: The following information was validated with the patient. Source: old records reviewed Medical History Ventral hernia Inguinal hernia Schizoaffective disorder Venous insufficiency Chronic venous stasis dermatitis Social History Social History Household Members: None Housing: Homeless Do you presently have visiting nurse or other home services: No Patient Tobacco Use Status: Former Tobacco user Advance Directives: No Advance Directives Information Provided: No service: No Sexual orientation: Don't Know Physical Exam ED Vital Signs: Vital Signs - 24 hr 11/01/23 18:39 Temperature 98.1 F Pulse Rate 72 Respiratory Rate 20 Blood Pressure 126/78 Pulse Oximetry 96 Oxygen Delivery Method Room Air BMI result Body Mass Index 36.8 Appearance: Alert. Oriented X3. No acute distress. Disheveled but calm and appropriate Eyes: Pupils equal, round and reactive to light. ENT: Pharynx normal. Neck: Normal inspection. Neck supple. CVS: Normal heart rate and rhythm. Pulses normal. Respiratory: No respiratory distress. Breath sounds normal. Abdomen: Soft and nontender. Skin: Skin warm and dry. Normal skin color. Normal skin turgor. Extremities: 2+ bilateral pitting lower extremity edema. No calf ttp Neuro: Oriented X 3. No motor deficit. No sensory deficit. Course Course Course Narrative: RME-62 year old male presents for evaluation of bilateral leg swelling that has been going on for several years. Occasionally endorses chest pain and shortness of breath. Plan for labs, chest x-ray, EKG Medical Decision Making Medical Decision Making [facility] Narrative: 62 yo male with PMH of schizophrenia and 2 years of leg edema - he has no signs of infection, lungs are CTAB no change in swelling doubt DVT at this time - will obtain labs, CXR, EKG and anticipate DC home with stockings and diuretics. Unsure if he will take them. He is not toxic appearing Differential Diagnosis Differential Diagnoses: The differential diagnosis associated with the presentation includes venous stasis, lymphedema, CHF Lab Data [facility] Lab Attestation statement: I reviewed the patient's lab results. 11/01/23 19:38 11/01/23 19:38 Labs: Lab Results 11/01/23 Range/Units 19:38 WBC 6.1 (4.8-10.8) X10*3/uL RBC 5.03 (4.60-5.80) X10*6/uL Hgb 15.2 (14.0-18.0) g/dl Hct 45.3 (42.0-52.0) % MCV 90.1 (80.0-98.0) fL MCH 30.2 (27.0-33.0) pg MCHC 33.6 (31.0-36.0) g/dl RDW 12.5 (11.0-16.0) % Plt Count 206 (160-400) X10*3/uL MPV 10.2 (9.4-12.4) fL Immature Gran % (Auto) 0.2 (0.0-0.4) % Neut % (Auto) 72.8 (45-73) % Lymph % (Auto) 13.5 L (20-40) % Ransom % (Auto) 10.7 (2-11) % Eos % (Auto) 2.5 (0-4) % Baso % (Auto) 0.3 (0-2) % Lymph # (Auto) 0.8 L (1.2-4.9) X10*3/uL Ransom # (Auto) 0.7 (0.1-1.2) X10*3/uL Eos # (Auto) 0.2 (0.0-0.4) X10*3/uL Baso # (Auto) 0.0 (0.0-0.2) X10*3/uL Abs Immat Gran (auto) 0.01 (0.00-0.03) X10*3/uL Absolute Neuts (auto) 4.4 (2.0-8.3) x10*3/uL Absolute Nucleated RBC 0.000 (0.0-0.012) X10*3/uL Nucleated RBC % (auto) 0.0 (0.0-0.2) /100WBC PT 12.1 (11.1-13.3) SEC INR 1.0 (0.9-1.1) Sodium 139 (135-145) mmol/L Potassium 3.7 (3.3-5.1) mmol/L Chloride 105 (96-108) mmol/L Carbon Dioxide 27 (22-29) mmol/L Anion Gap 11 L (12-20) BUN 15 (9-16) mg/dL Creatinine 0.72 (0.5-1.4) mg/dL Estim Creat Clear Calc 124.4 Estimated GFR > 60 Random Glucose 87 (60-115) mg/dL Calcium 9.0 (8.4-10.2) mg/dL Total Bilirubin 1.0 (0.0-1.0) mg/dL AST 18 (5-37) U/L ALT 12 (0-40) U/L Alkaline Phosphatase 170 H (39-117) U/L Troponin I High Sens < 2.7 (<3.5-35.0) ng/L B-Natriuretic Peptide 52 (<100) pg/mL Total Protein 7.2 (6.5-8.0) g/dL Albumin 3.8 (3.5-5.0) g/dL Lipase 19 (8-78) U/L Urine Color Yellow Urine Appearance Clear Urine pH 7.5 (5.0-9.0) Ur Specific [place] 1.015 (1.005-1.025) Urine Protein Negative (Neg-Trace) mg/dL Urine Glucose (UA) Negative (Negative) mg/dL Urine Ketones Negative (Negative) mg/dL Urine Blood Negative (Negative) Urine Nitrite Negative (Negative) Ur Leukocyte Esterase Negative (Negative) Urine RBC 0-2 (0-2) /HPF Urine WBC 0-5 (0-5) /HPF Ur Squamous Epith Cells 0-2 (0-2) /HPF Urine Bacteria None Seen (None Seen) Hyaline Casts 0-2 (0-2) /LPF Independent Interpretation I performed an independent interpretation of an: EKG and Plain X-Ray (no CHF) Interpretation: Rate: 60 Rhythm: NSR [place]: normal Normal P waves. Normal GAGE. Normal QRS complex. ST T wave : artifact noted but no GWYN qTC: normal prior studies: no acute ischemia The study has been interpreted contemporaneously by me. . Radiology Impression Discussion of test interpretation with radiology: I have reviewed the radiologist's reading. External Record Review External record reviewed: Office record Prescription Management I considered prescription management with: Other Discharge Plan Discharge Clinical Impression: Leg edema Patient Disposition: Home, Self-Care Instructions: Leg Edema (ED) Additional Instructions: please follow up and try to get a primary care doctor. you need your medical conditions monitored regularly return for worsening symptoms, increased redness, chest pain, fevers you can try to follow up with a primary care doctor at [facility] you can call [phone] Prescriptions: New furosemide [Lasix] 20 mg tablet 20 mg PO DAILY Qty: 7 0RF (DME) compr.stocking,knee,long,x-lrg Misc See Rx Instructions .Route Qty: 12 0RF Rx Instructions: As directed No Action perphenazine 4 mg Tablet 4 mg PO BID Qty: 60 0RF
--- NOTE | 2023-11-01 18:40 | ECG_ITS ---
Test Reason : ? chf Blood Pressure : / mmHG Vent. Rate : 060 BPM Atrial Rate : 000 BPM P-R Int : 000 ms QRS Dur : 092 ms QT Int : 406 ms P-R-T Axes : 000 027 048 degrees QTc Int : 406 ms Poor data quality Possible Normal sinus rhythm Borderline ECG No previous ECGs available Please repeat EKG Referred By: Michael Handley Electronically Signed By:ERIN PORTER MD
--- NOTE | 2023-11-01 19:32 | MHC.EDTECH ---
Patient called to triage area, EKG taken per order and Labs,and a Urine sample obtained and sent to lab. Patient brought back to waiting area.
[2023-11-01 19:48] LABS: MANUAL DIFF FLAG NO
[2023-11-01 19:50] LABS: Basophils Percent Auto 0.3 % (0-2); Eosinophils Absolute Auto 0.2 X10*3/uL (0.0-0.4); Eosinophils Percent Auto 2.5 % (0-4); Hematocrit 45.3 % (42.0-52.0); Hemoglobin 15.2 g/dl (14.0-18.0); Imm Gran Abs Auto 0.01 X10*3/uL (0.00-0.03); Imm Gran Pct Auto 0.2 % (0.0-0.4); Lymphocytes Absolute Auto 0.8 X10*3/uL (1.2-4.9); Lymphocytes Percent Auto 13.5 % (20-40); Mean Corpuscular HGB Conc 33.6 g/dl (31.0-36.0); Mean Corpuscular Hemoglobin 30.2 pg (27.0-33.0); Mean Corpuscular Volume 90.1 fL (80.0-98.0); Mean Platelet Volume 10.2 fL (9.4-12.4); Monocytes Absolute Auto 0.7 X10*3/uL (0.1-1.2); Monocytes Percent Auto 10.7 % (2-11); Neutrophils Absolute Auto 4.4 x10*3/uL (2.0-8.3); Neutrophils Percent Auto 72.8 % (45-73); Platelet Count 206 X10*3/uL (160-400); Red Blood Count 5.03 X10*6/uL (4.60-5.80); Red Cell Distribution Width 12.5 % (11.0-16.0); White Blood Count 6.1 X10*3/uL (4.8-10.8)
[2023-11-01 19:53] LABS: Appearance Urine Clear; Color Urine Yellow; Glucose Urine UA Negative (Negative); Leukocyte Esterase Urine Negative (Negative); Nitrite Urine Negative (Negative); PH 7.5 (5.0-9.0); Specific Gravity - Urine 1.015 (1.005-1.025); Urine Blood Negative (Negative); Urine Ketones Negative (Negative); Urine Protein Negative (Neg-Trace)
[2023-11-01 19:58] LABS: Bacteria Urine None Seen (None Seen); Hyaline Casts Urine 0-2 /LPF (0-2); RBC Urine 0-2 /HPF (0-2); Squamous Epithelial Cell Urine 0-2 /HPF (0-2); WBC Urine 0-5 /HPF (0-5)
[2023-11-01 20:02] LABS: Alanine Aminotransferase 12 U/L (0-40); Albumin Level 3.8 g/dL (3.5-5.0); Alkaline Phosphatase 170 U/L (39-117); Anion Gap 11 (12-20); Aspartate Amino Transferase 18 U/L (5-37); Blood Urea Nitrogen 15 mg/dL (9-16); Carbon Dioxide 27 mmol/L (22-29); Chloride 105 mmol/L (96-108); Creatinine Clr Calc Pharmacy 124.4; Estimated Glomerular Filt Rate > 60; Glucose Random 87 mg/dL (60-115); Lipase 19 U/L (8-78); Potassium 3.7 mmol/L (3.3-5.1); Prothrombin Time 12.1 SEC (11.1-13.3); Sodium 139 mmol/L (135-145); Total Protein 7.2 g/dL (6.5-8.0)
[2023-11-01 20:08] LABS: B Type Natriuretic Peptide 52 pg/mL (<100)
[2023-11-01 20:09] LABS: Troponin-I High Sensitivity < 2.7 ng/L (<3.5-35.0)
[2023-11-02 02:00] VITALS: BP 128/65; PULSE 68; RESP 16; O2SAT 97
== END 2023-11-02 06:22 | disposition home or self-care (01) ==
PROVIDERS: Physician Assistant; Emergency Provider Emergency Medicine
DX: R60.0 Localized edema (principal); R06.02 Shortness of breath; R07.89 Other chest pain; Z79.899 Other long term (current) drug therapy; Z87.891 Personal history of nicotine dependence; Z59.00 Homelessness unspecified
CPT/HCPCS: 36415; 71046; 80053; 81001; 83690; 83880; 84484; 85025; 85610; 93005; 99283; 99284

== ENCOUNTER → 2023-11-01 18:40 | Outpatient (BNV) | payer OTHER, SELFPAY | PROVIDERS: Emergency Provider Emergency Medicine; Visit Provider Internal Medicine Cardiovascular Disease | DX: R94.31 Abnormal electrocardiogram [ECG] [EKG] (principal) | CPT/HCPCS: 93010 ==